=== PATIENT | male | born 1955 | race Caucasian/White ===

== ENCOUNTER → 2024-05-27 08:00 | Outpatient (REF) | payer MEDICARE, SELFPAY | LOC: HWRCS 08:00 | PROVIDERS: ATTENDING PHYSICIAN Internal Medicine Cardiovascular Disease; FAMILY PHYSICIAN Internal Medicine | DX: I48.91 Unspecified atrial fibrillation (principal) | CPT/HCPCS: 93306 ==

== ENCOUNTER → 2024-05-28 08:54 | Outpatient (REF) | payer MEDICARE, SELFPAY | LOC: RAD 08:54 | PROVIDERS: ATTENDING PHYSICIAN Internal Medicine Cardiovascular Disease | DX: R09.89 Other specified symptoms and signs involving the circulatory and respiratory systems (principal); I48.91 Unspecified atrial fibrillation | CPT/HCPCS: 76770 ==